=== PATIENT | female | born 1995 | race Caucasian/White ===

== ENCOUNTER 2017-04-08 05:40 | Day surgery (SDC) | payer BC ==
[~2017-04-08] VITALS: Ht 160 cm; Wt 78.1 kg
[2017-04-08 06:30] VITALS: Ht 160 cm; Wt 78.1 kg
[2017-04-08 06:45] VITALS: BP 120/86; PULSE 73; RESP 14
[2017-04-08 07:39] VITALS: BP 115/69; PULSE 65; RESP 13
[2017-04-08] MEDS ORDERED: FENTAnyl 50 MCG/ML VIAL ONE (07:43)
[2017-04-08] MEDS ORDERED: MIDAZOLAM 1 MG/ML 2 ML INJ ONE ×2 (07:43)
--- NOTE | 2017-04-08 12:24 | GILP ---
DATE OF PROCEDURE: 04/08/2017 NAME OF PROCEDURES: Esophagogastroduodenoscopy and biopsy. SURGEON: Moiz Gordon MD PREOPERATIVE DIAGNOSES: 1. Abdominal pain. 2. Chronic heartburn. POSTOPERATIVE DIAGNOSES: 1. Reflux esophagitis with erosions. 2. Gastritis with erosions. 3. Gastric mucosal biopsies were taken for Helicobacter pylori test. INDICATION FOR THE PROCEDURE: Ms. Vane Granados is a 21-year-old female patient who had upper a bdominal pain and chronic heartburn, not responding to therapy. The patient was scheduled for endos copic examination for further evaluation. The procedure and possible complications were well explained to the patient. The patient understood and consented to the procedure. DESCRIPTION OF PROCEDURE: Under the influence of fentanyl and Versed, the gastroscope was carefully introduced into the esophagus and under direct vision, it was advanced to the stomach and through t he pylorus into the duodenal bulb and descending duodenum. FINDINGS: ESOPHAGUS: The patient had reflux esophagitis with erosions. STOMACH: The patient had gastritis with erosions. Gastric mucosal biopsies were taken for H. pylor i test. DUODENUM: Normal. She tolerated the procedure very well and there was no complication from the procedure. At the end of the procedure, she was awake with stable vital signs and she was discharged home to the care of h er family. IMPRESSION: 1. Reflux esophagitis with erosions. 2. Gastritis with erosions. 3. Gastric mucosal biopsies were taken for Helicobacter pylori test. PLAN: 1. Nexium 24 hours p.o. q.a.m. 2. Await H. pylori test report. Dictated By: MOIZ CRUZ/GRACY Conf#: [id number] DID#: [id number] CC: MOIZ GORDON MD;*EndCC*
== END 2017-04-08 09:41 | disposition home or self-care (01) ==
LOC: GIL 05:40
PROVIDERS: ATTEND Internal Medicine Gastroenterology
DX: K21.0 Gastro-esophageal reflux disease with esophagitis (principal); K29.60 Other gastritis without bleeding
CPT/HCPCS: 43239; 84703; 87081; J2250; J3010; Z7610

== ENCOUNTER 2019-07-18 05:45 | Day surgery (SDC) | payer BC, OTHER ==
[~2019-07-18] VITALS: Ht 162.6 cm; Wt 81.9 kg
[2019-07-18 07:06] VITALS: Ht 162.6 cm; Wt 81.9 kg
[2019-07-18 07:53] VITALS: BP 121/73; PULSE 59; RESP 20
[2019-07-18] MEDS ORDERED: FENTAnyl 50 MCG/ML VIAL ONE (08:22)
[2019-07-18] MEDS ORDERED: MIDAZOLAM 1 MG/ML 2 ML INJ ONE ×2 (08:22)
== END 2019-07-18 09:24 | disposition home or self-care (01) ==
LOC: GIL 05:45
PROVIDERS: ATTEND Internal Medicine Gastroenterology
DX: K21.0 Gastro-esophageal reflux disease with esophagitis (principal); K29.60 Other gastritis without bleeding
CPT/HCPCS: 43239; 84703; J2250; J3010; Z7610; 88305